=== PATIENT | female | born 1960 | race African-American/Black ===

== ENCOUNTER 2019-03-16 06:49 | Day surgery (SDC) | payer OTHER ==
--- NOTE | 2019-03-09 16:01 | Pre-Procedure Note/Attestation ---
Pre-Procedure Note/Attestation Complete Prior to Procedure Planned Procedure: right Procedure Narrative: Cataract Extraction with intraocular lens implant right eye Indications for Procedure Pre-Operative Diagnosis: Cortical/PSC Cataract right eye Attestation I attest that I discussed the nature of the procedure; its benefits; risks and complications; and alternatives (and the risks and benefits of such alternatives ), prior to the procedure, with the patient (or the patient's legal arborist representative). I attest that, if there was a reasonable possibility of needing a blood transfusion, the patient (or the patient's legal arborist representative) was given the [facility] standardized written summary, pursuant to the Venkata Hallowell Blood Safety Act ([place] Health and Safety Code # 1645, as amended). I attest that I re-evaluated the patient just prior to the surgery and that there has been no change in the patient's H&P, except as documented below: Anoop Hamlin MD Mar 09, 2019 16:01
--- NOTE | 2019-03-10 12:36 | Opthalmology H&P ---
Ophthalmology H&P H&P Chief Complaint: decreased vision in right eye HPI Vision Affects Ability to: read, focus/use eyes together HPI Narrative Blurry vision Exam Visual Acuity: OD Counting fingers @4ft OS20/25 Tension: OD 13 OS 14 Eye Exam: normal OU: external exam, palpebral fissure-width, marginal reflex distance, levator function, corneas, anterior chambers, fundus exam; findings: lens - PSC Cataract OD Assessment/Plan Treatment Plan: cataract extraction w/ lens implant Goals of Treatment: improvement of vision, enhance quality of life Attestation Attestation The risks and benefits of the surgery as well as alternative procedures were explained to the patient in detail. Anoop Hamlin MD Mar 10, 2019 12:36
[2019-03-16] VITALS (9 sets, daily range): BP systolic 111–156; BP diastolic 67–95
[~2019-03-16] VITALS: Ht 170.2 cm; Wt 83.9 kg
[2019-03-16] MEDS ORDERED: Akten 3.5% 1ml Btl RIGHT EYE ONE (07:00)
[2019-03-16] MEDS ORDERED: Tetracaine 0.5% Opth 4ml Soln RIGHT EYE ONE (07:00)
[2019-03-16] MEDS ORDERED: Proparacaine 0.5% Opth Soln 15ml RIGHT EYE ONE (07:00)
[2019-03-16] MEDS: Tropicamide 1% Opth 15ml Soln RIGHT EYE SCH ×3 (09:07→09:26)
[2019-03-16] MEDS: Tobramycin Op Soln 0.3% 5ml RIGHT EYE SCH ×3 (09:08→09:26)
[2019-03-16] MEDS: Diclofenac Sod 0.1% Op Soln RIGHT EYE SCH ×3 (09:08→09:26)
[2019-03-16] MEDS: Phenylephrine 10% Opth Soln 5ml RIGHT EYE SCH ×3 (09:08→09:26)
[2019-03-16] MEDS: Cyclopentolate 1% Opth Sol 2ml RIGHT EYE SCH ×3 (09:08→09:26)
[2019-03-16] MEDS ORDERED: OMEGA 3 1,0001 EACH PO (09:13)
[2019-03-16] MEDS ORDERED: VIT PO (09:13)
[2019-03-16] MEDS ORDERED: COQ-10100 M1 PO (09:13)
[2019-03-16] MEDS ORDERED: [UNRECOGNIZED DRUG - OTHER] PO (09:13)
[2019-03-16] MEDS ORDERED: EYE BRIGHT PO (09:13)
[2019-03-16] MEDS ORDERED: MULTIVITAMINS1 EAC2 ORAL (09:13)
[2019-03-16] MEDS ORDERED: BSS 15ml BTL ONE (12:15)
[2019-03-16] MEDS ORDERED: BSS 500ml btl ONE (12:15)
[2019-03-16] MEDS ORDERED: Sodium Hyaluronate 14 mg/ml 0.85ml ONE (12:15)
[2019-03-16] MEDS ORDERED: EPINEPHrine 1mg/1ml Amp ONE (12:15)
[2019-03-16] MEDS ORDERED: Povidone-Iodine 5% opth solution ONE (12:15)
--- NOTE | 2019-03-16 12:18 | Anethesia Preoperative Eval ---
Anesthesia Pre-op PMH/ROS General Date of Evaluation: Mar 16, 2019 Time of Evaluation: 12:16 Anesthesiologist: rayshawn ASA Score: ASA 2 Mallampati Score Class I : Soft palate, uvula, fauces, pillars visible Class II: Soft palate, uvula, fauces visible Class III: Soft palate, base of uvula visible Class IV: Only hard plate visible Mallampati Classification: Class II Surgeon: carine Diagnosis: cataract Surgical Procedure: cataract extraction Anesthesia History: none Family History: no anesthesia problems Allergies: Coded Allergies: No Known Allergies (Unverified , 03/16/19) Medications: see eMAR Patient NPO?: Yes NPO Date: Mar 16, 2019 NPO Time: 00:01 Past Medical History Cardiovascular: Reports: HTN; Denies: CAD, [place], valve dz, arrhythmia, other Pulmonary: Denies: asthma, COPD, JOLIE, other Gastrointestinal/Genitourinary: Denies: GERD, CRI, ESRD, other Neurologic/Psychiatric: Denies: dementia, CVA, depression/anxiety, TIA, other Endocrine: Denies: DM, hypothyroidism, steroids, other HEENT: Reports: cataract (L) Hematology/Immune: Denies: anemia, DVT, bleeding disorder, other Musculoskeletal/Integumentary: Denies: OA, RA, DJD, DDD, edema, other PSxH Narrative: c/s Anesthesia Pre-op Phys. Exam Physician Exam Last Vital Signs Date Time Temp Pulse Resp B/P (MAP) Pulse Ox O2 Delivery O2 Flow Rate FiO2 03/16/19 09:34 97.8 57 18 156/95 100 Room Air Constitutional: NAD Neurologic: CN 2-12 intact Cardiovascular: RRR Respiratory: CTA Gastrointestinal: S/NT/ND Airway Exam Mallampati Classification 2 Mallampati Score: Class I MO: full ROM: full Dentures: no upper, no lower Anesthesia Pre-op A/P Studies Pre-op Studies: EKG - sr Risk Assessment & Plan Assessment: denies cp/sob Plan: mac Status Change Before Surgery: No Pre-Antibiotics Drug: none Elisabet Sherman CRNA Mar 16, 2019 12:18
[2019-03-16] MEDS ORDERED: fentaNYL 100 mcg/2 mL IV ONE (12:19)
[2019-03-16] MEDS ORDERED: Midazolam 2mg/2ml Inj ONE ×3 (12:19→12:44)
[2019-03-16] MEDS ORDERED: fentaNYL 100 mcg/2 mL IV PRN (12:30)
[2019-03-16] MEDS ORDERED: Pilocarpine 1% Opth 15ml Soln ONE (12:30)
[2019-03-16] MEDS ORDERED: Sterile Water Irrig 1000ml IRRIG ONE (12:30)
[2019-03-16] MEDS ORDERED: Pred Forte 1% Opth Susp 1ml ONE (12:30)
[2019-03-16] MEDS ORDERED: LR 1000ml ONE (12:30)
[2019-03-16] MEDS ORDERED: Dexamethasone 4mg/ml vial ONE (12:30)
[2019-03-16] MEDS ORDERED: NS Irrig 1000ml ONE (12:30)
--- NOTE | 2019-03-16 15:35 | Immediate Post-Op Evaluation ---
Immediate Post-Op Evalulation Immediate Post-Op Evalulation Procedure: cataract extraction right eye Date of Evaluation: Mar 16, 2019 Time of Evaluation: 13:03 IV Fluids: 600 Blood Pressure Systolic: 132 Blood Pressure Diastolic: 60 Pulse Rate: 61 Respiratory Rate: 14 O2 Sat by Pulse Oximetry: 98 Temperature (Fahrenheit): 98.2 Nausea: No Vomiting: No Complications none Patient Status: awake, reacts, patent Hydration Status: adequate Drug: none Elisabet Sherman CRNA Mar 16, 2019 15:35
--- NOTE | 2019-03-16 15:35 | 48 Hour Post Anesthesia Eval ---
Post Anesthesia Evaluation Procedure: cataract extraction right eye Date of Evaluation: Mar 16, 2019 Time of Evaluation: 15:35 Blood Pressure Systolic: 149 0: 80 Pulse Rate: 55 Respiratory Rate: 14 O2 Sat by Pulse Oximetry: 95 Airway: patent Nausea: No Vomiting: No Hydration Status: adequate Cardiopulmonary Status: stable Mental Status/LOC: patient returned to baseline Post-Anesthesia Complications: none Follow-up care needed: N/A Elisabet Sherman CRNA Mar 16, 2019 15:35
--- NOTE | 2019-03-18 14:25 | Brief Operative Note ---
Immediate Post Operative Note Operative Note Chief Complaint: Blurry vision Pre-op Diagnosis: Cortical/PSC Cataract right eye Procedure: Cataract extraction with IOL implant right eye Findings: consistent w/pre-op dx studies Surgeon: Anoop Hamlin MD Anesthesiologist: Elisabet Sherman CRNA Anesthesia: MAC Specimen: none Complications: none Condition: stable Fluids: LR Estimated Blood Loss: none Drains: none Implant(s) used?: Yes - IOL Anoop Hamlin MD Mar 18, 2019 14:25
--- NOTE | 2019-03-18 14:42 | Operative Note - PDOC ---
Operative Note Operative Note Date of Operation/Procedure: Mar 16, 2019 Chief Complaint: Blurry vision Pre-op Diagnosis: Cortical/PSC Cataract right eye Procedure: Cataract extraction with IOL implant right eye Operative Findings: consistent w/pre-op dx studies Surgeon: Anoop Hamlin MD Anesthesiologist: Elisabet Sherman CRNA Anesthesia: MAC Specimen: none Complications: none Condition: stable Fluids: LR Estimated Blood Loss: none Drains: none Implant(s) used?: Yes - IOL Indications for Procedure Cortical/ Posterior subcapsular Cataract right eye Description of Procedure This patient has been complaining visually significant cataract in the right eye with the best corrected visual acuity of counting fingers at 4ft. The patient complains of difficulties with glare in performing activities of daily living and wants to manage personal affairs with comfort and accuracy and see well enough to move with safety at home and outdoors. The risks, benefits and alternatives of the procedure were discussed with the patient in the office prior to scheduling surgery. All questions from the patient were answered after the surgical procedure was explained in detail. The risks of the procedure as explained to the patient include, but are not limited to, pain, infection, bleeding, loss of vision, retinal detachment, need for further surgery, loss of lens nucleus, double vision, etc. Alternative procedures were discussed which include, to do nothing or seek a second opinion. Informed consent for this procedure was obtained from the patient. The patient was referred to a primary care physician for a cardiopulmonary clearance prior to surgery, after proper evaluation was done patient was properly scheduled for outpatient surgery. The patient was brought to the operating room where the anesthesiologist established I.V. lines and cardiac monitoring leads. Mild intravenous sedation was administered. The patient was then prepared with a 5% solution of povidone -iodine to the conjunctival fornix and lashes, and a 5% solution of povidone- iodine to the lids and periorbital skin. The patient was then draped in the usual sterile fashion. A lid speculum was then placed in the operative eye. A keratome blade was then used to create a biplanar incision into the anterior chamber. Viscoelastics was then instilled into the anterior chamber. A curvilinear capsulorrhexis was then fashioned with an utrata forceps. A BSS was used with G-27 cannula was used to hydrodissect and hydrodelineate the lens nucleus. Paracentesis incision was made at 9 o'clock with sharp blade. The phacoemulsification unit, after being properly adjusted and tested, was then used to emulsify the nucleus. Residual cortical material was aspirated with the irrigation and aspiration unit. Healon was then instilled into the anterior chamber. The corneal wound was then enlarged to the size of the optic with the jourdan keratome blade. The intraocular lens was then inspected for right power and size and thought to be satisfactory. Then the lens was gently placed in the capsular bag. Positioning within the capsular bag was confirmed by direct visualization. Optic centration was accomplished with a Sinskey hook. Viscoelastics was removed from the anterior chamber using the irrigation and aspiration unit. The corneal wound was then tested for leaks and none were found. The lid speculum were then removed. Sponge and needle counts were correct. An eye patch and shield were placed over the operative eye. The patient was taken to the recovery room in stable condition. There were no complications. The patient tolerated the procedure well. The patient was then transferred to the ambulatory surgery unit in stable and satisfactory condition , was given detailed written instructions and asked to follow up in the office the next day. Anoop Hamlin MD Mar 18, 2019 14:42
== END 2019-03-16 14:10 | disposition home or self-care (01) ==
LOC: SUR 06:49
DX: H25.011 Cortical age-related cataract, right eye (principal); H25.041 Posterior subcapsular polar age-related cataract, right eye; I10 Essential (primary) hypertension
CPT/HCPCS: 66984; J0171; J1100; J2250; J3010; J3370; V2632; 94003; 94150